=== PATIENT | female | born 1960 | race Caucasian/White ===

== ENCOUNTER 2017-01-13 11:24 | Outpatient (CLI) | payer OTHER ==
[2017-01-13 12:06] LABS: eGFR (African) > 60; eGFR (Non-African) > 60
--- NOTE | 2017-01-13 14:13 | Diagnostic Imaging Report ---
LIZZ ROBLES [facility] [address] [facility] [address] [address] Report Submission Date: Jan 13, 2017 12:51:30 PM CDT Patient Study Name: TRACI SHEPARD Date: Jan 13, 2017 11:46:21 AM CDT Modality Type: CR Gender: F Description: SPINE : 60 Institution: [facility] Physician: LIZZ ROBLES Examination: Plain film lumbar spine History: Back discomfort Findings: 3 views of the lumbar spine demonstrate normal height. No anterior compression. Mild listhesis L5 on S1: less than 5%. Slight curvature of the lower lumbar spine to the left. L5/S1 facet degenerative changes. No soft tissue abnormalities. Impression: Lower lumbar degenerative changes and listhesis. No compression deformity. If patient is experiencing neurologic symptoms, consider obtaining MRI. Electronically signed on Jan 13, 2017 12:51:30 PM CDT by: Shashi SNEED
== END 2017-01-13 11:25 ==
LOC: RAD 11:24
PROVIDERS: ATTEND Family Medicine
DX: R53.82 Chronic fatigue, unspecified (principal); E78.00 Pure hypercholesterolemia, unspecified; M54.5 Low back pain
CPT/HCPCS: 36415; 72100; 80053; 80061; 84443

== ENCOUNTER 2019-06-03 12:05 | Emergency (ER) | payer OTHER ==
--- NOTE | 2019-06-03 12:47 | ED Physician Documentation ---
Dyspnea - HISTORIAN Historian: patient - HPI Stated Complaint: SOB Chief Complaint: Dyspnea Additional Information: 58 year old female presents to the ER with c/o intermittent SOA x 2 weeks but not really short of breath today. She states that she occasionally has wheezing at bedtime; she states that she feels bloated; admits to not eating right or exercising as she should; she also c/o intermittent chest tightness; her symptom s are very vague and piecing together. She has not seen PCP in 2 years; she likes try "all natural" remedies prior to being seen. 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) Severity: moderate Exacerbated By: exertion Associated Symptoms: chest discomfort (intermittant) - ROS CONST: no problems EYES/ENT: none GI/: denies: vomiting, nausea NEURO/PSYCH: denies: headache MS/SKIN/LYMPH: none - PAST HX Lung Disease: none Cardiac Disease: none Surgeries/Procedures: other (wisdom teeth) Other History: other (deviated septum) Immunizations: UTD Allergies/Adverse Reactions: Allergies Allergy/AdvReac Type Severity Reaction Status Date / Time codeine Allergy Verified 06/03/19 12:32 Home Medications: Ambulatory Orders Medication Instructions Recorded NK 06/03/19 - SOCIAL HX Smoking History: quit less than 1 year Alcohol Use: none Drug Use: none - FAMILY HX Family History: none - VITAL SIGNS Vital Signs: Vital Signs Temp Pulse Resp BP Pulse Ox 98.6 F 107 H 18 126/83 96 06/03/19 12:14 06/03/19 12:14 06/03/19 12:14 06/03/19 12:14 06/03/19 12:14 - REVIEWED ASSESSMENTS Nursing Assessment Reviewed: Yes Vitals Reviewed: Yes Progress - Progress Progress: 13:15 Discussed results of [address] CT- patient not really wanting anything done- explained that [facility]; she states that she will call and have her brother take her; explained that we needed to call [facility] for transfer (she states "I am just going to go there") I explained the process of getting accepting; explained the importance of going by ambulance; she adamantly refuses; explained the risks of increasing shortness of breath; heart failure and ; she states this has been going on for 2 weeks and 2 more hours wont hurt; I explained that 2 hours can make a huge difference since this has been going on for so long. She would like to sign out. Refusal form completed; contacted [facility] and spoke to Dr. Preston in the ER about patient; he was very accepting and understanding of situation. ED Results Lab/Radiology - Radiology Radiology Impressions: EXAMINATION: ABD SERIES PA CHEST HISTORY: ORDER STATES SOA AND ABDOMINAL BLOATING; PT STATES WORSENING SOA OVER THE LAST 2-3 WEEKS; PT STATES NO HX OF ANY SURGERIES OR HEART OR LUNG PROBLEMS; (Hx) / Note time : 06/03/2019 12:52:33 PM User : Cristel Phelps ORDER STATES SOA AND ABDOMINAL BLOATING; PT STATES WORSENING SOA OVER THE LAST 2-3 WEEKS; PT STATES NO HX OF ANY SURGERIES OR HEART OR LUNG PROBLEMS; ONLY PRIOR IMAGING IS L-SPINE 01/13/2017 (DICOM Hx) / RIGHT LOW BACK PAIN (Pt comments) (DICOM Hx) COMPARISON: None FINDINGS: There is a large left pleural effusion. The right lung is clear without pleural effusion. There is no pneumothorax. The cardiomediastinal silhouette is partially obscured. There are no abnormally dilated bowel loops. No pneumoperitoneum or pathological calcification is seen. The visible osseous structures are intact. IMPRESSION: 1. Large left pleural effusion. Underlying mass cannot be excluded on this study. Thoracentesis, chest CT, and/or follow-up to resolution is recommended. 2. No evidence of bowel obstruction. Electronically signed on Jun 03, 2019 1:00:15 PM ARCHIVES SPECIALIST by: Qamar Bell - Orders Orders: ED Orders Category Date Time Status ABD SERIES PA CHEST [RAD] Stat Exams 06/03/19 Ordered CBC/PLATELET/DIFF Stat Lab 06/03/19 12:25 Received CKMB Stat Lab 06/03/19 12:25 Received CMP Stat Lab 06/03/19 12:25 Received CREATINE KINASE Stat Lab 06/03/19 12:25 Received TROPONIN I Stat Lab 06/03/19 12:25 Received EKG WITH COMPARISON Stat Ther 06/03/19 12:18 Ordered Dyspnea Physical Exam - EXAM General Appearance: no acute distress, alert EENT: eye inspection normal, ENT inspection normal, pharynx normal, no signs of dehydration, NATALYA Neck: nml inspection Respiratory: speaks full sentences, decreased air movement (left lower and middle lobe (clear throughout)) CVS: tachycardia Abdomen: non-tender Skin: color nml, no rash, warm, dry Extremities: non-tender, normal range of motion Neuro/Psych: oriented x3, CN's nml as tested, motor nml, sensation nml, mood/affect nml Discharge Clincal Impression: Pleural effusion on left Referrals: Joe Estrella MD [Primary Care Provider] - 2 Days Disposition: AGAINST MEDICAL ADVICE Decision to Admit: NO Decision Time: 13:28
[2019-06-03 13:00] LABS: BASOPHILS % 1.8 % (0.0-1.5); NEUTROPHILS # 4.2 # k/uL (1.4-7.7); SEGMENTED NEUTROPHILS % 12 % (39-79)
[2019-06-03 13:02] LABS: eGFR (Non-African) > 60
--- NOTE | 2019-06-03 13:04 | Diagnostic Imaging Report ---
PATIENT MR#: [id number] PATIENT PATIENT NAME: TRACI SHEPARD DATE OF : 1960 REFERRING PHYSICIAN: Nelly Seth EXAM DATE: 06/03/2019 ACCESSION NUMBER: [id number] EXAM DESCRIPTION: ABD SERIES PA CHEST EXAMINATION: ABD SERIES PA CHEST HISTORY: ORDER STATES SOA AND ABDOMINAL BLOATING; PT STATES WORSENING SOA OVER THE LAST 2-3 WEEKS; PT STATES NO HX OF ANY SURGERIES OR HEART OR LUNG PROBLEMS; (Hx) / No te time : 06/03/2019 12:52:33 PM User : Cristel Phelps ORDER STATES SOA AND ABDOMINAL BLOATING; PT STATES WORSENING SOA OVER THE LAST 2-3 WEEKS; PT STATES NO HX OF ANY SURGERIES OR HEART OR LUNG PROBLEMS; ONLY PRIOR IMAGING IS L-SPINE 01/13 (DICOM Hx) / RIGHT LOW BACK PAIN (Pt comments) (DI COM Hx) COMPARISON: None FINDINGS: There is a large left pleural effusion. The right lung is clear without pleural effusion. There is no pneumothorax. The cardiomediastinal silhouette is partially obscured. There are no abnormally dilated bowel loops. No pneumoperitoneum or pathological calcification is see n. The visible osseous structures are intact. IMPRESSION: 1. Large left pleural effusion. Underlying mass cannot be excluded on this study. Thoracentesis, ches t CT, and/or follow-up to resolution is recommended. 2. No evidence of bowel obstruction. Read by: Qamar Bell Transcribed by: Transcribed Date: Electronically signed by: Qamar Bell Date signed: 06/03/2019 1:03:50 PM
[2019-06-03 13:38] VITALS: BP 146/83
== END 2019-06-03 13:30 | disposition left against medical advice (07) ==
LOC: ED 12:05
DX: J90 Pleural effusion, not elsewhere classified (principal); Z87.891 Personal history of nicotine dependence
CPT/HCPCS: 74022; 80053; 82550; 82553; 83880; 84484; 85025; 93005; 99282; 99283; S1016